=== PATIENT | female | born 1950 | race Caucasian/White ===

== ENCOUNTER 2016-08-13 23:59 | Emergency (ER) | payer MEDICAID, OTHER ==
[~2016-08-13] VITALS: Ht 165.1 cm; Wt 77.0 kg
[~2016-08-13 23:59] MED LIST: ENAL10 PO; GLYB5 PO; METF850T2 PO; NIFE30TA5 PO; insulin
[2016-08-14] MEDS ORDERED: IBUP-2070 PO (00:15)
[2016-08-14] MEDS ORDERED: AMOX250C4 PO (00:15)
[2016-08-14 00:22] LABS: GLUCOSE,POINT OF CARE 186 MG/DL (70-110)
[2016-08-14 02:39] VITALS: BP 138/87
== END 2016-08-14 02:40 | disposition home or self-care (01) ==
LOC: EMS 08-14
DX: H10.11 Acute atopic conjunctivitis, right eye (principal); E11.9 Type 2 diabetes mellitus without complications; I10 Essential (primary) hypertension
CPT/HCPCS: 82962; 99283

== ENCOUNTER 2016-10-13 19:09 | Emergency (ER) | payer OTHER ==
[~2016-10-13] VITALS: Ht 165.1 cm; Wt 75.0 kg
[~2016-10-13 19:09] MED LIST changes: +AMOX250C4 PO; +IBUP-2070 PO
[2016-10-13 20:32] LABS: GLUCOSE,POINT OF CARE 248 MG/DL (70-110)
[2016-10-13] MEDS ORDERED: HYDROCODONE/ACETAMINOPHEN 5-325 MG TABLET PO ONE (21:45)
[2016-10-13] MEDS ORDERED: KETOROLAC TROMETHAMINE 30 MG/ML VIAL IM ONE (21:45)
[2016-10-13 23:19] VITALS: BP 127/77
== END 2016-10-13 23:21 | disposition home or self-care (01) ==
LOC: EMS 19:10
DX: M54.5 Low back pain (principal); E11.9 Type 2 diabetes mellitus without complications; I10 Essential (primary) hypertension
CPT/HCPCS: 72100; 82962; 96372; 99284; J1885

== ENCOUNTER 2017-08-13 15:51 | Emergency (ER) | payer MEDICAID, OTHER ==
[~2017-08-13] VITALS: Ht 170.2 cm; Wt 77.3 kg
[~2017-08-13 15:51] MED LIST changes: -AMOX250C4 PO; -ENAL10 PO; +ENAL10TA2 PO; -insulin
[2017-08-13] MEDS ORDERED: CARV3 PO (17:16)
[2017-08-13] MEDS ORDERED: PIOG30TA10 PO (17:16)
[2017-08-13] MEDS ORDERED: ATOR40TA28 PO (17:16)
[2017-08-13] MEDS ORDERED: LINA5TAB PO (17:16)
[2017-08-13] MEDS ORDERED: LISI-662 PO (17:16)
[2017-08-13] MEDS ORDERED: ASPI81 PO (17:16)
[2017-08-13] MEDS ORDERED: KETOROLAC TROMETHAMINE 30 MG/ML VIAL IVP ONE (18:00)
[2017-08-13] MEDS ORDERED: ONDANSETRON HCL 4 MG/2 ML VIAL IVP ONE (18:15)
[2017-08-13] MEDS ORDERED: KETAMINE HCL 50 MG/ML 10 ML VIAL IVP ONE (19:00)
[2017-08-13 20:31] VITALS: BP 171/87
== END 2017-08-13 21:18 | disposition home or self-care (01) ==
LOC: EMS 15:53
DX: S82.002A Unspecified fracture of left patella, initial encounter for closed fracture (principal); S53.124A Posterior dislocation of right ulnohumeral joint, initial encounter; S00.81XA Abrasion of other part of head, initial encounter; S80.211A Abrasion, right knee, initial encounter; E11.9 Type 2 diabetes mellitus without complications; I10 Essential (primary) hypertension; Z79.82 Long term (current) use of aspirin; W01.0XXA Fall on same level from slipping, tripping and stumbling without subsequent striking against object, initial encounter; Y93.89 Activity, other specified; Y92.412 Parkway as the place of occurrence of the external cause; Y99.8 Other external cause status
CPT/HCPCS: 24600; 29505; 73080; 73562; 96374; 96375; 99152; 99153; 99285; J1885; J2405; J3490; 29105; 29530

== ENCOUNTER 2020-03-25 15:04 | Emergency (ER) | payer MEDICAID ==
[~2020-03-25] VITALS: Ht 165.1 cm; Wt 79.5 kg
[~2020-03-25 15:04] MED LIST changes: +ASPI-728 PO; +ATOR40TA28 PO; +CARV3 PO; -ENAL10TA2 PO; -GLYB5 PO; -IBUP-2070 PO; +INDO-16 PO; +LINA5TAB PO; +LISI-662 PO; +METF-445 PO; -METF850T2 PO
[2020-03-25 22:15] VITALS: BP 139/82
== END 2020-03-25 22:15 | disposition home or self-care (01) ==
LOC: EMS 15:04
DX: M25.512 Pain in left shoulder (principal); M54.5 Low back pain; I10 Essential (primary) hypertension; E11.9 Type 2 diabetes mellitus without complications; Z79.899 Other long term (current) drug therapy; Z79.82 Long term (current) use of aspirin; W01.0XXA Fall on same level from slipping, tripping and stumbling without subsequent striking against object, initial encounter; Y93.89 Activity, other specified; Y92.89 Other specified places as the place of occurrence of the external cause; Y99.8 Other external cause status
CPT/HCPCS: 72100; 71045-TC